=== PATIENT | female | born 1970 | race Caucasian/White ===

== ENCOUNTER 2017-12-19 11:15 | Outpatient (CLI) | payer MEDICAID ==
[~2017-12-19 11:15] MED LIST: CARB200C2 PO; FOLI0.4T2 PO; GABA-338 PO; PARO10TA23 PO
== END 2017-12-19 23:59 | disposition home or self-care (01) ==
LOC: LAB 11:15
PROVIDERS: ATTEND Family Medicine
DX: R94.6 Abnormal results of thyroid function studies (principal)
CPT/HCPCS: 36415; 84443

== ENCOUNTER 2018-12-16 12:25 | Emergency (ER) | payer MEDICAID ==
[~2018-12-16] VITALS: Ht 170.2 cm; Wt 106.0 kg
[2018-12-16] MEDS ORDERED: ketorolac trometh inj. 60 MG/2 ML VIAL IM ONE (12:55)
[2018-12-16 13:48] VITALS: BP 131/75
== END 2018-12-16 14:42 | disposition home or self-care (01) ==
LOC: ER 12:25
DX: M79.605 Pain in left leg (principal); F32.9 Major depressive disorder, single episode, unspecified; Z79.899 Other long term (current) drug therapy
CPT/HCPCS: 93971; 96372; 99284; J1885

== ENCOUNTER 2020-11-11 13:36 | Emergency (ER) | payer MEDICAID ==
[~2020-11-11] VITALS: Ht 172.7 cm; Wt 90.9 kg
[~2020-11-11 13:36] MED LIST changes: -FOLI0.4T2 PO; +FOLI0.4T6 PO
[2020-11-11] MEDS ORDERED: LORazepam 1 MG tablet PO ONE (13:55)
[2020-11-11] MEDS ORDERED: ESCI20TA PO (14:43)
[2020-11-11] MEDS ORDERED: LEVO100T PO (14:43)
[2020-11-11] MEDS ORDERED: MELO-100 PO (14:43)
[2020-11-11] MEDS ORDERED: TOPI200T PO (14:43)
[2020-11-11] MEDS ORDERED: MUPI22OI30 TOP (14:43)
[2020-11-11] MEDS ORDERED: GABA300C PO (14:43)
[2020-11-11] MEDS ORDERED: TRAZ-256 PO (14:43)
[2020-11-11] MEDS ORDERED: CRAN500C4 PO (14:46)
[2020-11-11] MEDS ORDERED: LACT1CAP75 PO (14:46)
[2020-11-11 15:00] LABS: BASOPHILS % (AUTO) 0.5 % (0-1); EOSINOPHILS # (AUTO) 0.1 X10'3 (0-0.9); EOSINOPHILS % (AUTO) 3.4 % (0-6); HEMATOCRIT 40.6 % (35.0-45.0); HEMOGLOBIN 13.7 g/dl (12.0-16.0); LYMPHOCYTES # (AUTO) 0.7 X10'3 (1.1-4.8); LYMPHOCYTES % (AUTO) 18.9 % (21-51); MEAN CORPUSCULAR HGB CONC 33.7 g/dL (33.0-36.5); MEAN CORPUSCULAR VOLUME 97.9 FL (78-98); MONOCYTES # (AUTO) 0.3 X10'3 (0-0.9); MONOCYTES % (AUTO) 7.9 % (2-12); NEUTROPHILS # (AUTO) 2.7 X10'3 (1.8-7.7); NEUTROPHILS % (AUTO) 69.3 % (42-75); PLATELET COUNT 276 X10'3 (140-440); RED BLOOD COUNT 4.14 X10'6 (4.20-5.60); RED CELL DISTRIBUTION WIDTH 16.1 % (11.5-14.5); WHITE BLOOD COUNT 3.9 X10'3 (4.5-11.0)
[2020-11-11 15:26] LABS: ALANINE AMINOTRANSFERASE 23 U/L (12-78); ALBUMIN 3.7 G/DL (3.4-5.0); ALKALINE PHOSPHATASE 56 IU/L (46-116); ANION GAP 16 (8-16); BILIRUBIN,TOTAL 0.5 MG/DL (0.1-1.0); BLOOD UREA NITROGEN 14 MG/DL (7-18); BUN/CREATININE RATIO 19.7 (6.6-38.0); CHLORIDE 104 MMOL/L (99-107); CREATININE 0.71 MG/DL (0.40-0.90); GLUCOSE 77 MG/DL (70-104); SODIUM 137 MMOL/L (135-145); TOTAL CARBON DIOXIDE 17.3 MMOL/L (24-32); TOTAL PROTEIN 7.3 G/DL (6.4-8.2); eGFR 87 ML/MIN
[2020-11-11 15:33] LABS: ETHANOL 0.115 GM/DL (0.0-0.010)
[2020-11-11 15:39] LABS: ASPARTATE AMINO TRANSFERASE 32 U/L (10-37); POTASSIUM 4.2 MMOL/L (3.5-5.1)
[2020-11-11] MEDS ORDERED: LORazepam 2 mg/ml vial IM ONE (16:10)
[2020-11-11] MEDS ORDERED: haloperidol lactate 5mg/ml inj IM ONE (16:10)
[2020-11-11] MEDS ORDERED: diphenhydrAMINE 50 mg/ml inj IM ONE (16:10)
--- NOTE | 2020-11-11 16:13 | NUR ---
"I talked myself out of killing myself. I am the only one with white skin in my family. I will go to [place] and they treat me like I'm a pig." Patient angry and combative. Patient's drug abuse social worker brought patient in for suicidal ideation and some delusional thinking. Patient has DD and is associated with [facility]. Continue to monitor.
[2020-11-11 16:42] LABS: CLARITY,URINE CLEAR (Clear); COLOR,URINE YELLOW (Yellow); GLUCOSE, URINE NEGATIVE (Neg); KETONES,URINE 15 mg/dl (Neg); LEUKOCYTE ESTERASE ,URINE TRACE (Neg); NITRITES, URINE NEGATIVE (Neg); OCCULT BLOOD,URINE NEGATIVE (Neg); PH,URINE 6.5 (4.8-8.0); PROTEIN,URINE NEGATIVE (Neg); UROBILINOGEN,URINE 0.2 E.U/dL (0.2-1.0)
[2020-11-11 16:53] LABS: UA COLLECTION TYPE CLN CATCH MIDSTREAM
[2020-11-11 16:54] LABS: URINE AMPHETAMINE SCREEN NEGATIVE (Neg); URINE BARBITUATE SCREEN NEGATIVE (Neg); URINE BENZODIAZEPINES SCREEN NEGATIVE (Neg); URINE CANNABINOID SCREEN NEGATIVE (Neg); URINE COCAINE SCREEN NEGATIVE (Neg); URINE METHADONE SCREEN NEGATIVE (Neg); URINE OPIATE SCREEN NEGATIVE (Neg); URINE PHENCYCLIDINE SCREEN NEGATIVE (Neg)
[2020-11-11 16:57] LABS: BACTERIA,URINE NONE SEEN /HPF (Neg); SQUAMOUS EPITHELIAL CELL,UR MODERATE /LPF (FEW)
--- NOTE | 2020-11-11 16:57 | NUR ---
FAXED PACKET [facility]
[2020-11-11 17:00] LABS: WBC,URINE 0-4 /HPF (0-4)
[2020-11-11 17:05] LABS: RBC,URINE 0-2 /HPF (0-2)
[2020-11-11 17:06] LABS: MUCUS STRANDS FEW /LPF (Neg)
--- NOTE | 2020-11-11 17:22 | NUR ---
Tariff Inspector, Ary Sterling, . [facility], Daisy Loya, [phone], Ditch Inspector
--- NOTE | 2020-11-11 17:25 | NUR ---
Patient now calm. RN did not need to give I.M. injections as patient calmed down. Patient is aware of [facility] evaluation this evening. RN believes patient will be placed on a 5150. Patient is non-compliant with medication and has been drinking. Patient's social welfare clerk left for the evening. Patient is a little paranoid. Continue to monitor.
--- NOTE | 2020-11-11 19:03 | NUR ---
The patient is denying that she is suicidal. She reports that she has relapsed on ETOH approximately two weeks ago. She currently is angry that someone from the [facility] has not come to evaluate her. Discussed plan of care.
[2020-11-11] MEDS ORDERED: acetaminophen 325mg tablet PO ONE (19:30)
[2020-11-11 20:03] VITALS: BP 143/89
[2020-11-11] MEDS ORDERED: gabapentin 300mg capsule PO SCH (21:00)
[2020-11-11] MEDS ORDERED: traZODone 50mg tablet PO SCH (21:00)
[2020-11-12] MEDS ORDERED: mupirocin 2% ointment 22GM TP SCH
[2020-11-12] MEDS ORDERED: topiramate 100mg tablet PO SCH (08:00)
[2020-11-12] MEDS ORDERED: non-formulary drug (Cranberry Extract (Cranberry) 1 CAP) PO SCH (08:00)
[2020-11-12] MEDS ORDERED: lactobacillus rhamnosus 10,000 MMU CELLS/CAPSULE PO SCH (08:00)
[2020-11-12] MEDS ORDERED: ESCITALOPRAM OXALATE 5 MG TABLET PO SCH (08:00)
[2020-11-12] MEDS ORDERED: levoTHYROXINE 100mcg tablet PO SCH (08:00)
== END 2020-11-11 20:14 | disposition home or self-care (01) ==
LOC: ER 13:37
DX: R45.851 Suicidal ideations (principal); F10.129 Alcohol abuse with intoxication, unspecified; F32.9 Major depressive disorder, single episode, unspecified; G89.29 Other chronic pain; F41.9 Anxiety disorder, unspecified; Z86.69 Personal history of other diseases of the nervous system and sense organs; Z98.890 Other specified postprocedural states; Z60.2 Problems related to living alone; Z79.2 Long term (current) use of antibiotics; Z79.899 Other long term (current) drug therapy; Y90.0 Blood alcohol level of less than 20 mg/100 ml
CPT/HCPCS: 36415; 80053; 80305; 80320; 81001; 84443; 85025; 93005; 99285

== ENCOUNTER 2021-12-29 08:49 | Outpatient (CLI) | payer MEDICAID ==
[~2021-12-29 08:49] MED LIST changes: -CARB200C2 PO; +CRAN500C4 PO; +ESCI20TA PO; -FOLI0.4T6 PO; -GABA-338 PO; +GABA300C PO; +LACT1CAP75 PO; +LEVO100T PO; +MELO-100 PO; +MUPI22OI30 TOP; -PARO10TA23 PO; +TOPI200T PO; +TRAZ-256 PO
== END 2021-12-29 23:59 | disposition home or self-care (01) ==
LOC: RAD 08:49
PROVIDERS: ATTEND Physician Assistant
DX: R94.01 Abnormal electroencephalogram [EEG] (principal); F44.5 Conversion disorder with seizures or convulsions
CPT/HCPCS: 95819